=== PATIENT | female | born 1955 | race African-American/Black ===

== ENCOUNTER 2023-08-18 06:48 | Day surgery (SDC) | payer OTHER ==
[2023-08-17 13:45] LABS: Absolute Eosinophils 0.1 K/uL (0-0.5); Absolute Lymphocytes (CBC) 1.7 K/uL (0.7-4.9); Absolute Monocytes 0.4 K/uL (0.1-1.3); Absolute Neutrophil 3.3 K/uL (1.8-8.0); Basophils % 0.5 % (0-1.3); Eosinophils % 1.3 % (0-4.4); Hematocrit 38.2 % (36.0-45.0); Hemoglobin 12.5 g/dL (12.0-15.0); Lymphocytes % 30.3 % (15.3-44.8); MCH 28.9 pg (27.0-35.0); MCHC 32.7 g/dL (32.0-36.0); MCV 88.3 fL (80-100); MPV 7.1 fL (7.6-11.3); Monocytes % 7.6 % (3.3-12.3); Neutrophils % 60.3 % (41.7-73.7); Platelets 359 thou/uL (152-406); RBC Red Blood Cell Count 4.33 M/uL (3.86-4.86); Red Cell Distribution Width 16.7 % (12.1-15.2)
[2023-08-17 13:49] LABS: Anion Gap 8.2 mEq/L (5.0-15.0); Potassium 4.2 mEq/L (3.5-5.1)
[2023-08-18] MEDS ORDERED: Ringers Lactate 1,000 ML IV ONE (07:04)
[2023-08-18] MEDS ORDERED: propofoL 200 MG/20 ML VIAL IV ONE (07:49)
[2023-08-18] MEDS ORDERED: LIDOCAINE 1% MPF 5 ML VIAL ONE (07:49)
[2023-08-18 09:48] VITALS: BP 125/70; TEMP 96.8; O2SAT 100
--- NOTE | 2023-08-21 13:10 | EKG ---
Test Date: 2023-08-17 Test Time: 13:22:59 [employer]: ALICJA MEASUREMENT RESULTS: Intervals: Rate: 72 GA: 154 QRSD: 82 QT: 370 QTc: 405 [place]: P: 63 GA: 154 QRS: 14 T: 39 INTERPRETIVE STATEMENTS: Normal sinus rhythm Cannot rule out Anterior infarct, age undetermined Abnormal ECG No previous ECG available for comparison Electronically Signed On 08-21-23 12:59:29 CDT by Jono Ballesteros
== END 2023-08-18 09:20 | disposition home or self-care (01) ==
LOC: OR 06:48
PROVIDERS: ATTEND Surgery
PROC: 0DBM8ZX Excision of Descending Colon, Via Natural or Artificial Opening Endoscopic, Diagnostic (ICD-10-PCS; principal; 2023-08-18 07:30)
DX: R10.9 Unspecified abdominal pain (principal); R14.0 Abdominal distension (gaseous); R19.8 Other specified symptoms and signs involving the digestive system and abdomen; K57.30 Diverticulosis of large intestine without perforation or abscess without bleeding; K64.8 Other hemorrhoids; K63.5 Polyp of colon
CPT/HCPCS: 93005; 85025; 80048; 36415; 88304; 45380; J2704; J2001; J7120; 88305

== ENCOUNTER 2023-10-07 12:33 | Emergency (ER) | payer OTHER ==
--- OUTSIDE RECORDS SUMMARY | 2023-10-07 12:37 | XMS REPORT | Continuity of Care Document ---
Author Name Unknown Address [address] [facility] [address] [place] [address] [facility] thconnect Address [address] [facility] [address] [place] [address] Care Team Providers Care Aged Or Disabled Carer Name Role Phone UMAIR DIOR Primary Care Physician MARCIAL Carbajal Attending Clinician MARCIAL Fish Attending Clinician Henrietta MESSINA Attending Clinician Unavailable Oral DUMONT, Estee Moore Attending Clinician Unavailab Carmen Howell [facility] Attending Clinician Unavailabl e Doctor Unassigned, [place] Attending Clinician U JACEK Kapadia Attending Clinician Unavailabl demar BARGER Attending Clinician Unavailable Therapy, Pcp Covid Infusion Attending Clinician Unavailable Aldo Zambrano MD Attending Clinician ALDO ZAMBRANO Attending Clinician Unavailable MARCIAL FRENCH Admitting Clinician Henrietta MESSINA Admitting Clinician Unavailable CHARBEL Admitting Clinician Unavailable Payers Payer Name Policy Type Policy Number Effective Date Expirati on Date Source [employer] G[employer]BACK HMO [id number] 2022 00:00:00 [place] (MEDICARE REPLACEMENT/ADVANT AGE - HMO) [id number] 2022 00:00:00 [place] PREMI[place] H[place]/POS [id number] 2022 00:00:00 UMR (PPO) [id number] 2017 00:00:00 Problems Condition Name Condition Details Condition Category Status Onset Date Resolution Date Last Treatment Date Treating Clinician Comments Source Chronic kidney disease stage 2 Chronic Kidney Disease Stage 2 Problem Active 4-21 00:00: 00 [facility] Allergic rhinitis Allergic Rhinitis Problem Active 1-18 00:00: 00 [facility] Multiple joint pain Multiple Joint Pain Problem Active 18 00:00: 00 [facility] Pain in throat Pain in Throat Problem Active 18 00:00: 00 [facility] Long-term drug therapy Long-term Drug Therapy Problem Active 18 00:00: 00 [facility] Hyperchole sterolemia Hyperchole sterolemia Problem Active 2022-04 0-12 00:00: 00 [facility] Serosal tear of rectum Serosal Tear of Rectum Problem Active 2022-04 0-12 00:00: 00 [facility] Seasonal allergic rhinitis Seasonal Allergic Rhinitis Problem Active 8-09 00:00: 00 [facility] Thickened endometriu m Thickened endometriu m Disease Active 6-13 00:00: 00 [facility] Abnormal uterine bleeding Abnormal Uterine Bleeding Problem Active 5-08 00:00: 00 [facility] Pain in left arm Pain in Left Arm Problem Active 5-08 00:00: 00 [facility] Prediabete s Prediabete s Problem Active 4-03 00:00: 00 [facility] History of migraine History of Migraine Problem Active 07-07 00:00: 00 [facility] Body mass index 30+ - obesity Body Mass Index 30+ - Obesity Problem Active 16 00:00: 00 [facility] Malaise and fatigue Malaise and Fatigue Problem Active 07-07 00:00: 00 [place] [facility] Abdominal pain Abdominal Pain Problem Active 07-07 00:00: 00 [place] [facility] Postmenopa usal bleeding Postmenopa usal bleeding Disease Active 07-08 00:00: 00 [facility] Personal history of COVID-19 Personal history of COVID-19 Disease Active 07-08 00:00: 00 [facility] Herpes labialis Herpes labialis Disease Active 07-08 00:00: 00 [facility] Family history of malignant neoplasm of breast in first degree relative Family history of malignant neoplasm of breast in first degree relative Disease Active 06-21 00:00: 00 [facility] Endometria l hyperplasi a Endometria l hyperplasi a Disease Active 06-21 00:00: 00 [facility] Unsatisfac tory cervical Papanicola ou smear Unsatisfac tory cervical Papanicola ou smear Disease Active 10-05 00:00: 00 Overview: Formattin g of this note might be different from the original. Repeat in 6-8 weeks [facility] Encounter for routine gynecologi matilde examinatio n Encounter for routine gynecologi matilde examinatio n Disease Active 09-24 00:00: 00 Overview: Formattin g of this note might be different from the original. 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 ICD10 Diagnosis Term [employer] Utility [facility] Absence of menstruati on Absence of menstruati on Disease Active 09-24 00:00: 00 [facility] Trichomona l vulvovagin itis Trichomona l vulvovagin itis Disease Active 09-24 00:00: 00 [facility] Rectal tear Rectal tear Disease Active [facility] Allergies, Adverse Reactions, Alerts Allergy Name Allergy Type Status Severity Reaction(s) Onset Date Inactive Date Treating Clinician Comments Source TRIMETHO PRIM DRUG INGREDI Active Other-Cmnt 09-24 00:00: 00 [facility] Trimetho prim Propensi ty to adverse reaction s Active Other - See comments 09-24 00:00: 00 spasms [facility] Social History Social Habit Start Date Stop Date Quantity Comments Source Gender identity [facility] Sexual orientation [facility] History of tobacco use Cigarette Smoker [facility] Alcohol intake 2023-03-21 00:00:00 2023-03-21 00:00:00 Current non-drinker of alcohol (finding) [facility] History of Social function 2023-03-06 00:00:00 2023-03-06 00:00:00 [facility] Tobacco use and exposure 2023-02-24 00:00:00 2023-02-24 00:00:00 Smokeless tobacco non-user [facility] Exposure to SARS-CoV-2 (event) 2022-09-10 00:00:00 2022-09-20 16:59:00 Not sure [facility] Sex Assigned At 1955 00:00:00 1955 00:00:00 [facility] Smoking Status Start Date Stop Date Source Ex-smoker 2023-02-24 00:00:00 2023-02-24 00:00:00 [facility] Never smoked tobacco [facility] Medications Ordered Medication Name Filled Medication Name Start Date Stop Date Current Medication? Ordering Clinician Indication Dosage Frequency Signature (SIG) Comments Components Source HYDROcodone -acetaminop hen (NORCO 5) 5-325 mg tablet 1 tablet 2022-04 16:00: 00 03-06 17:02 :00 No 1{tbl} 1 tablet, Oral, ONCE, 1 dose, On Mon03/06/23 at 1000, Routine, PACU [facility] HYDROmorphO ne (DILAUDID) injection 0.2 mg 2022-04 15:57: 20 Yes .2mg 0.2 mg, Slow IV Push, Q5MIN PRN, 10 doses, Starting on Mon03/06/23 at 0957, Until Discontinu ed, Routine, Pain (scale 7-10), PACU
Us e approved by (Faculty): PACU USE -ANESTHESI A SERVICE-HY DROMORPHON E INJECTIONS [facility] FENTanyl PF (SUBLIMAZE (PF)) injection 25 mcg 2022-04 15:57: 20 Yes 25ug 25 mcg, Slow IV Push, Q5MIN PRN, 4 doses, Starting on Mon03/06/23 at 0957, Until Discontinu ed, Routine, Pain (scale 4-6), PACU [facility] ondansetron (ZOFRAN (PF)) injection 4 mg 2022-04 15:57: 20 Yes 4mg 4 mg, Slow IV Push, PRN, 1 dose, Starting on Mon03/06/23 at 0957, Until Discontinu ed, Routine, Nausea and Vomiting (N/V), PACU [facility] sodium chloride 0.9 % irrigation solution 2022-04 14:05: 00 03-06 16:20 :31 No PRN, Starting on Mon03/06/23 at 0805, Until Mon03/06/23 at 1020, Intra-op [facility] vasopressin (VASOSTRICT ) injection 2022-04 14:05: 00 03-06 16:20 :31 No PRN, Starting on Mon03/06/23 at 0805, Until Mon03/06/23 at 1020, Routine, Intra-op [facility] atorvastati n 20 mg tablet 2022-04 12:53: 35 Yes 20mg Take 1 tablet by mouth at bedtime. [facility] metroNIDAZO LE 500 mg tablet 2022-04 00:00: 00 03-14 05:59 :00 No [id number] 500mg Take 1 tablet by mouth in the morning and 1 tablet in the evening. Do all this for 7 days. [facility] HYDROcodone -acetaminop hen 5-325 mg tablet 2022-04 00:00: 00 03-14 05:59 :00 No [id number] 1{tbl} Take 1 tablet by mouth every 6 (six) hours as needed for Pain (scale 4-6) or Pain (scale 7-10) for up to 7 days. Indication s: acute pain [facility] atorvastati n 20 mg tablet 2022-04 14:48: 39 Yes 20mg Take 1 tablet by mouth at bedtime. [facility] gabapentin 300 mg capsule 08-15 00:00: 00 Yes 300mg Take 1 capsule by mouth in the morning and 1 capsule in the evening. [facility] traMADoL 50 mg tablet 08-09 00:00: 00 03-06 00:00 :00 No 50mg Take 1 tablet by mouth every 6 (six) hours. [facility] casirivimab -imdevimab 1200 mg in 60 mL NS MINI-BAG 01-14 20:45: 00 01-14 19:57 :00 No [id number] 1200mg [facility] casirivimab -imdevimab 1200 mg in 60 mL NS MINI-BAG 01-14 20:45: 00 01-14 19:57 :00 No [id number] 1200mg 1,200 mg, IV Infusion, ONCE, Administer over 20 Minutes, On Mon01/14/21 at 1545, For 1 dose
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 &nbs p;
[facility] metroNIDAZO LE (FLAGYL) 500 mg tablet 09-24 00:00: 00 03-06 00:00 :00 No 2 gm po x 1 dose [facility] atorvastati n 20 mg tablet Take 1 tablet every day by oral route. Take with Co Q10 daily with this medication. atorvastati n 20 mg tablet Take 1 tablet every day by oral route. Take with Co Q10 daily with this medication. No 1 Q1D atorvastat in 20 mg tablet Take 1 tablet every day by oral route. Take with Co Q10 daily with this medication . [facility] Immunizations Ordered Immunization Name Filled Immunization Name Date Status Comments Source influenza, unspecified formulation influenza, unspecified formulation Unknown Completed [facility] COVID-19 (SARS-COV-2) vaccine, unspecified COVID-19 (SARS-COV-2) vaccine, unspecified Unknown Completed [facility] Vital Signs Vital Name Observation Time Observation Value Comments S ource BP Systolic 2023-09-14 00:00:00 110 mm[Hg] [facility] BMI (Body Mass Index) 2023-09-14 00:00:00 37.6 kg/m2 [facility] BP Diastolic 2023-09-14 00:00:00 66 mm[Hg] [facility] Body Weight 2023-09-14 00:00:00 3504 [oz_av] [facility] Height 2023-09-14 00:00:00 64 [in_i] [facility] BP Diastolic 2023-08-10 00:00:00 78 mm[Hg] [facility] Height 2023-08-10 00:00:00 64 [in_i] Replaced by [facility] BMI (Body Mass Index) 2023-08-10 00:00:00 3.8 kg/m2 [facility] BP Systolic 2023-08-10 00:00:00 108 mm[Hg] [facility] Body Weight 2023-08-10 00:00:00 352 [oz_av] [facility] BP Systolic 2023-05-11 00:00:00 128 mm[Hg] [facility] BP Diastolic 2023-05-11 00:00:00 84 mm[Hg] [facility] Height 2023-05-11 00:00:00 64 [in_i] [facility] Systolic blood pressure 2023-03-21 19:16:00 129 mm[Hg] [facility] Diastolic blood pressure 2023-03-21 19:16:00 82 mm[Hg] [facility] Heart rate 2023-03-21 19:16:00 105 /min [facility] Body temperature 2023-03-21 19:16:00 36.78 Silvia [facility] Respiratory rate 2023-03-21 19:16:00 16 /min [facility] Body height 2023-03-21 19:16:00 162.6 cm [facility] Body weight 2023-03-21 19:16:00 102.876 kg [facility] BMI 2023-03-21 19:16:00 38.93 kg/m2 [facility] Oxygen saturation in Arterial blood by Pulse oximetry 2023-03-21 19:16:00 95 /min [facility] Heart rate 2023-03-06 17:25:00 68 /min [facility] Oxygen saturation in Arterial blood by Pulse oximetry 2023-03-06 17:25:00 97 /min [facility] Systolic blood pressure 2023-03-06 17:20:00 124 mm[Hg] [facility] Diastolic blood pressure 2023-03-06 17:20:00 58 mm[Hg] [facility] Respiratory rate 2023-03-06 17:20:00 23 /min [facility] Body temperature 2023-03-06 16:03:00 36.39 Silvia [facility] Body height 2023-02-24 14:30:00 162.6 cm [facility] Body weight 2023-02-24 14:30:00 100.245 kg [facility] BMI 2023-02-24 14:30:00 37.93 kg/m2 [facility] Systolic blood pressure 2023-03-06 12:53:00 112 mm[Hg] [facility] Diastolic blood pressure 2023-03-06 12:53:00 62 mm[Hg] [facility] Heart rate 2023-03-06 12:53:00 99 /min [facility] Body temperature 2023-03-06 12:53:00 36.67 Silvia [facility] Respiratory rate 2023-03-06 12:53:00 16 /min [facility] Oxygen saturation in Arterial blood by Pulse oximetry 2023-03-06 12:53:00 100 /min [facility] Body height 2023-02-24 14:30:00 162.6 cm [facility] Body weight 2023-02-24 14:30:00 100.245 kg [facility] BMI 2023-02-24 14:30:00 37.93 kg/m2 [facility] Systolic blood pressure 2023-03-02 20:47:00 104 mm[Hg] [facility] Diastolic blood pressure 2023-03-02 20:47:00 64 mm[Hg] [facility] Heart rate 2023-03-02 20:47:00 92 /[facility] 2023-03-02 20:47:00 18 /min [facility] Body height 2023-03-02 20:47:00 162.6 cm [facility] Body weight 2023-03-02 20:47:00 103.874 kg [facility] BMI 2023-03-02 20:47:00 39.31 kg/m2 [facility] BP Systolic 2023-02-02 00:00:00 122 mm[Hg] [facility] BP Diastolic 2023-02-02 00:00:00 70 mm[Hg] [facility] BMI (Body Mass Index) 2023-02-02 00:00:00 39.3 kg/m2 [facility] Body Weight 2023-02-02 00:00:00 3664 [oz_av] [facility] Height 2023-02-02 00:00:00 64 [in_i] [facility] Systolic blood pressure 2023-01-05 20:29:00 117 mm[Hg] [facility] Diastolic blood pressure 2023-01-05 20:29:00 73 mm[Hg] [facility] Heart rate 2023-01-05 20:29:00 98 /min [facility] Body temperature 2023-01-05 20:29:00 36.67 Silvia [facility] Respiratory rate 2023-01-05 20:29:00 16 /min [facility] Body height 2023-01-05 20:29:00 162.6 cm [facility] Body weight 2023-01-05 20:29:00 101.061 kg [facility] BMI 2023-01-05 20:29:00 38.24 kg/m2 [facility] Oxygen saturation in Arterial blood by Pulse oximetry 2023-01-05 20:29:00 98 /min [facility] Height 2022-12-05 00:00:00 64 [in_i] Replaced by [facility] BP Systolic 2022-12-05 00:00:00 122 mm[Hg] [facility] Body Weight 2022-12-05 00:00:00 3376 [oz_av] [facility] BP Diastolic 2022-12-05 00:00:00 68 mm[Hg] [facility] BMI (Body Mass Index) 2022-12-05 00:00:00 36.2 kg/m2 [facility] Body Weight 2022-11-30 00:00:00 3376 [oz_av] [facility] BP Systolic 2022-11-30 00:00:00 120 mm[Hg] [facility] BMI (Body Mass Index) 2022-11-30 00:00:00 36.2 kg/m2 [facility] BP Diastolic 2022-11-30 00:00:00 74 mm[Hg] [facility] Height 2022-11-30 00:00:00 64 [in_i] Replaced by [facility] Systolic blood pressure 2022-11-10 20:07:00 109 mm[Hg] [facility] Diastolic blood pressure 2022-11-10 20:07:00 74 mm[Hg] [facility] Heart rate 2022-11-10 20:07:00 82 /min [facility] Body temperature 2022-11-10 20:07:00 36.61 Silvia [facility] Respiratory rate 2022-11-10 20:07:00 18 /min [facility] Body height 2022-11-10 20:07:00 162.6 cm [facility] Body weight 2022-11-10 20:07:00 100.426 kg [facility] BMI 2022-11-10 20:07:00 38.00 kg/m2 [facility] Systolic blood pressure 2022-10-04 19:18:00 128 mm[Hg] [facility] Diastolic blood pressure 2022-10-04 19:18:00 72 mm[Hg] [facility] Heart rate 2022-10-04 19:18:00 88 /min [facility] Body temperature 2022-10-04 19:18:00 36.5 Silvia [facility] Body height 2022-10-04 19:18:00 162.6 cm [facility] Body weight 2022-10-04 19:18:00 98.068 kg [facility] BMI 2022-10-04 19:18:00 37.11 kg/m2 [facility] BP Diastolic 2022-09-22 00:00:00 68 mm[Hg] [facility] Height 2022-09-22 00:00:00 64 [in_i] Replaced by [facility] BMI (Body Mass Index) 2022-09-22 00:00:00 37.2 kg/m2 [facility] BP Systolic 2022-09-22 00:00:00 118 mm[Hg] [facility] Body Weight 2022-09-22 00:00:00 3472 [oz_av] [facility] Systolic blood pressure 2022-09-16 20:15:00 100 mm[Hg] [facility] Diastolic blood pressure 2022-09-16 20:15:00 67 mm[Hg] [facility] Heart rate 2022-09-16 20:15:00 80 /min [facility] Respiratory rate 2022-09-16 20:15:00 18 /min [facility] Body height 2022-09-16 20:15:00 162.6 cm [facility] Body weight 2022-09-16 20:15:00 98.884 kg [facility] BMI 2022-09-16 20:15:00 37.42 kg/m2 [facility] BP Diastolic 2022-08-29 00:00:00 84 mm[Hg] [facility] Height 2022-08-29 00:00:00 64 [in_i] Replaced by [facility] BMI (Body Mass Index) 2022-08-29 00:00:00 37.4 kg/m2 [facility] BP Systolic 2022-08-29 00:00:00 118 mm[Hg] [facility] Body Weight 2022-08-29 00:00:00 3488 [oz_av] [facility] BP Diastolic 2022-08-15 00:00:00 86 mm[Hg] [facility] Height 2022-08-15 00:00:00 64 [in_i] Replaced by [facility] BP Systolic 2022-08-15 00:00:00 118 mm[Hg] [facility] BP Diastolic 2022-08-12 00:00:00 78 mm[Hg] [facility] Height 2022-08-12 00:00:00 64 [in_i] Replaced by [facility] BMI (Body Mass Index) 2022-08-12 00:00:00 37.8 kg/m2 [facility] BP Systolic 2022-08-12 00:00:00 114 mm[Hg] [facility] Body Weight 2022-08-12 00:00:00 3520 [oz_av] [facility] BP Diastolic 2022-08-09 00:00:00 86 mm[Hg] [facility] Height 2022-08-09 00:00:00 64 [in_i] Replaced by [facility] BP Systolic 2022-08-09 00:00:00 138 mm[Hg] [facility] BP Diastolic 2022-07-28 00:00:00 72 mm[Hg] [facility] Height 2022-07-28 00:00:00 64 [in_i] Replaced by [facility] BMI (Body Mass Index) 2022-07-28 00:00:00 37.9 kg/m2 [facility] BP Systolic 2022-07-28 00:00:00 118 mm[Hg] [facility] Body Weight 2022-07-28 00:00:00 3536 [oz_av] [facility] BP Diastolic 2022-07-07 00:00:00 74 mm[Hg] [facility] Height 2022-07-07 00:00:00 64 [in_i] Replaced by [facility] BMI (Body Mass Index) 2022-07-07 00:00:00 37.6 kg/m2 [facility] BP Systolic 2022-07-07 00:00:00 128 mm[Hg] [facility] Body Weight 2022-07-07 00:00:00 3504 [oz_av] [facility] Systolic blood pressure 2021-01-14 20:53:00 106 mm[Hg] [facility] Diastolic blood pressure 2021-01-14 20:53:00 68 mm[Hg] [facility] Heart rate 2021-01-14 20:53:00 101 /min [facility] Body temperature 2021-01-14 20:53:00 36.22 Silvia [facility] Respiratory rate 2021-01-14 20:53:00 20 /min [facility] Oxygen saturation in Arterial blood by Pulse oximetry 2021-01-14 20:53:00 95 /min room air [facility] Body height 2021-01-14 19:30:00 162.6 cm [facility] Body weight 2021-01-14 19:30:00 107.049 kg [facility] BMI 2021-01-14 19:30:00 40.51 kg/m2 [facility] Procedures Procedure Date / Time Performed Performing Clinician Source DEXA, axial skeleton + vertebral fracture assessment 2023-08-10 00:00:00 [facility] MAMMO, screening, bilateral 2023-08-10 00:00:00 [facility] US, neck, soft tissue 2023-05-11 00:00:00 [facility] Hysterectomy 2023-05-11 00:00:00 [facility] HB ECG ROUTINE & RHYTHM STRIP 2023-03-06 17:41:25 America Cobb [facility] VAGINAL HYSTERECTOMY 2023-03-06 13:12:00 Duyen Alexandre Marcial [facility] CYSTOSCOPY 2023-03-06 13:12:[address] [facility] CBC WITH DIFF 2023-03-04 16:44:[address] [facility] DSU PRE-OP 2023-03-02 06:01:00 Doctor Unass igned, [place] [facility] INSURANCE CORRESPONDENCE 2023-02-21 05:01:00 Doc tor Unassigned, [place] [facility] US PELVIS COMPLETE WITH TRANSVAGINAL 2022-09-27 21:00:29 Gillian Marcial [facility] ASSIGNMENT OF BENEFITS 2022-09-16 19:36:55 Docto r Unassigned, [place] [facility] REFERRAL- REQUEST/RESPONSE 2022-08-29 05:01:00 D octor Unassigned, [place] [facility] XR, scapula 2022-08-12 00:00:00 [facility] XR, thoracic spine, 2 view 2022-08-12 00:00:00 [facility] XR, chest, 2 view 2022-08-12 00:00:00 [facility] electrocardiogram 2022-08-09 00:00:00 [facility] XR, abdomen 2022-07-07 00:00:00 [facility] [id number] CONSENT 2021-01-14 05:01:00 Doctor Johnny signed, [place] [facility] Ligation of Fallopian Tube S [facility] Encounters Start Date/Time End Date/Time Encounter Type Admission Type Attending [facility] Care Facility Care Department Encounter ID Source 2022-11-17 16:22:06 Outpatient [facility] [id number] [facility] 2023-09-14 00:00:00 2023-09-14 00:00:00 WANDER Armenta: Ruby Scott, [place] [address] , Ph. [phone] [facility], [facility], [place] [address] [address] [place] [facility] [facility] 2023-08-10 00:00:00 2023-08-10 00:00:00 WANDER Armenta: [place] [address] , Ph. [facility], KILLIAN [address] 0418 [facility] 2023-08-01 00:00:00 2023-08-01 00:00:00 Outpatient ERICKSON_R [facility] [id number] [facility] 2023-05-11 00:00:00 2023-05-11 00:00:00 Outpatient ERICKSON_R [facility] [id number] [facility] 2023-05-11 00:00:00 2023-05-11 00:00:00 WANDER Armenta: [address], [place] [address] , Ph. [facility], DR. DIOR [id number] [facility] 2023-04-25 11:00:00 2023-04-25 11:00:00 Outpatient R VELA-ISABELA S, MARCIAL VELA-ISABELA S, MARCIAL [facility] [id number] [facility] 2023-03-21 13:15:00 2023-03-21 13:38:39 Outpatient R VELA-ISABELA S, MARCIAL VELA-ISABELA S, MARCIAL [facility] [id number] [facility] 2023-03-21 13:15:00 2023-03-21 13:38:39 Office Visit Vela-Isabela s, Marcial [facility] 1.2.840.114 350.1.13.10 4.2.7.2.686 [id number] [facility] 2023-03-17 00:00:00 2023-03-17 00:00:00 Nurse Triage Estee Mixon [facility] 1.2.840.114 350.1.13.10 4.2.7.2.686 [id number] [facility] 2023-03-06 06:27:00 2023-03-06 11:50:00 Outpatient R VELA-ISABELA S, MARCIAL VELA[facility]ISABEL[facility] S, [facility]CIAL [facility] COLLEGE [id number] [facility] 2023-03-06 06:27:00 2023-03-06 11:50:00 [facility] 1.2.840.114 350.1.13.10 4.2.7.2.686 [id number] [facility] 2023-03-06 07:15:00 2023-03-06 10:00:00 [facility] 1.2.840.114 350.1.13.10 4.2.7.2.686 [id number] [facility] 2023-03-04 10:45:00 2023-03-04 11:00:00 Departmental Buyer Visit Pob, Adc Lab Main lOe trejo Marcial [facility] 1.20.114 350.1.13.10 4.2.7.2.686 [id number] [facility] 2023-03-04 10:45:00 2023-03-04 10:45:00 Outpatient R ALONZO-ISABELA S, MARCIAL VELA-ISABELA S, MARCIAL [facility] [id number] [facility] 2023-03-02 14:30:00 2023-03-02 15:13:05 Outpatient R ALONZO-ISABELA S, MARCIAL VELA-ISABELA S, [facility] [id number] [facility] 2023-03-02 14:30:00 2023-03-02 15:13:05 Office Visit Ole trejo [facility] 1.0.114 350.1.13.10 4.2.7.2.686 [id number] [facility] 2023-03-02 00:00:00 2023-03-02 00:00:00 Orders Only Doctor Unassigned, [place] [facility] 1.2840.114 350.1.13.10 4.2.7.2.686 [id number] [facility] 2023-03-02 00:00:00 2023-03-02 00:00:00 Telephone Ole trejo [facility] 1.20.114 350.1.13.10 4.2.7.2.686 [id number] [facility] 2023-02-21 00:00:00 2023-02-21 00:00:00 Orders Only Doctor Unassigned, [place] [facility] 1.2840.114 350.1.13.10 4.2.7.2.686 [id number] [facility] 2023-02-02 00:00:00 2023-02-02 00:00:00 Umair Doir, DO: [address], [address], [place] [address] , [address] [facility] - [facility], DR. DIOR [id number] [facility] 2023-01-30 00:00:00 2023-01-30 00:00:00 Outpatient ERICKSON_R [facility] [id number] [facility] 2023-01-30 00:00:00 2023-01-30 00:00:00 Outpatient ERANUJ_R [facility] [id number] [facility] 2023-01-05 15:30:00 2023-01-05 16:00:00 Office Visit Vela-Isabela s Marcial [facility] 1.2.840.114 350.1.13.10 4.2.7.2.686 [id number] [facility] 2023-01-05 15:30:00 2023-01-05 15:30:00 Outpatient R VELA-ISABELA S, MARCIAL VELA-ISABELA S, MARCIAL [facility] [id number] [facility] 2022-12-20 00:00:00 2022-12-20 00:00:00 Telephone Vela-Isabela s, Marcial [facility] 1..840.114 350.1.13.10 4.2.7.2.686 [id number] [facility] 2022-12-15 14:00:00 2022-12-15 14:00:00 Outpatient R VELA-ISABELA S, MARCIAL VELA-ISABELA S, MARCIAL [facility] [id number] [facility] 2022-12-05 00:00:00 2022-12-05 00:00:00 Umair Dior, DO: [address], [place] [address] , Ph. [facility], DR. DIOR [id number] [facility] 2022-11-30 00:00:00 2022-11-30 00:00:00 KILLIAN [place]-C: [address], [place] [address] , Ph. [facility], DR. DIOR [id number] [facility] 2022-11-10 14:45:00 2022-11-10 15:23:16 Outpatient R MARCIAL MORALES [facility] [id number] [facility] 2022-11-10 14:45:00 2022-11-10 15:23:16 Office Visit Marcial Morales [facility] 1.2.840.114 350.1.13.10 4.2.7.2.686 [id number] [facility] 2022-10-28 00:00:00 2022-10-28 00:00:00 Telephone Marcial Morales [facility] 1.2.840.114 350.1.13.10 4.2.7.2.686 [id number] [facility] 2022-10-24 14:00:00 2022-10-24 14:00:00 Outpatient JACEK WYLIE [facility] [id number] [facility] 2022-10-06 00:00:00 2022-10-06 00:00:00 Outpatient ERICKSON_R [facility] [id number] [facility] 2022-10-06 00:00:00 2022-10-06 00:00:00 Outpatient ERJUSTINON_R [facility] [id number] [facility] 2022-10-04 13:15:00 2022-10-04 14:29:24 Outpatient R VELA-ISABELA S, MARCIAL VELA-ISABELA S, MARCIAL [facility] [id number] [facility] 2022-10-04 13:15:00 2022-10-04 13:45:00 Office Visit Vela-Isabela s, Marcial [facility] 1.2.840.114 350.1.13.10 4.2.7.2.686 [id number] [facility] 2022-09-27 15:13:31 2022-09-27 23:59:00 Outpatient R VELA-ISABELA S, MARCIAL VELA-ISABELA S, MARCIAL [facility] [id number] [facility] 2022-09-27 15:00:00 2022-09-27 23:59:00 Hospital Encounter Vela-Isabela s, Marcial [facility] 1.2.840.114 350.1.13.10 4.2.7.2.686 [id number] [facility] 2022-09-22 00:00:00 2022-09-22 00:00:00 Umair Dior, DO: [address] , [place] [address] , Ph. [phone] [facility], DR. DIOR [id number] [facility] 2022-09-16 15:00:00 2022-09-16 15:44:23 Outpatient R EVLA-ISABELA S, MARCIAL VELA-ISABELA S, MARCIAL [facility] [id number] [facility] 2022-09-16 15:00:00 2022-09-16 15:44:23 Office Visit Marcial Morales [facility] 1.2.840.114 350.1.13.10 4.2.7.2.686 [id number] [facility] 2022-09-16 00:00:00 2022-09-16 00:00:00 Orders Only Doctor Unassigned, [place] [facility] 1.2.840.114 350.1.13.10 4.2.7.2.686 [id number] [facility] 2022-08-29 00:00:00 2022-08-29 00:00:00 Umair Dior, DO: [address], [place] [address] , Ph. [facility], DR. DIOR [id number] [facility] 2022-08-29 00:00:00 2022-08-29 00:00:00 Orders Only Doctor Unassigned, [place] [facility] 1.2.840.114 350.1.13.10 4.2.7.2.686 [id number] [facility] 2022-08-15 00:00:00 2022-08-15 00:00:00 Umair Dior, DO: [address], [place] [address] , Ph. [facility], DR. DIOR [id number] [facility] 2022-08-12 00:00:00 2022-08-12 00:00:00 Umair Dior, DO: [place] [address] , Ph. [phone] [facility], DR. DIOR [id number] [facility] 2022-08-09 00:00:00 2022-08-09 00:00:00 Umair Dior, DO: [address], [place] [address] , Ph. [facility], DR. DIOR [id number] [facility] 2022-07-28 00:00:00 2022-07-28 00:00:00 Outpatient ERICKSON_R [facility] [id number] [facility] 2022-07-28 00:00:00 2022-07-28 00:00:00 Outpatient ERICKSON_R [facility] [id number] [facility] 2022-07-28 00:00:00 2022-07-28 00:00:00 Outpatient ERICKSON_R [facility] [id number] [facility] 2022-07-28 00:00:00 2022-07-28 00:00:00 Outpatient ERICKSON_R [facility] [id number] [facility] 2022-07-28 00:00:00 2022-07-28 00:00:00 Outpatient ERICKSON_R [facility] [id number] [facility] 2022-07-28 00:00:00 2022-07-28 00:00:00 Outpatient ERICKSON_R [facility] [id number] [facility] 2022-07-28 00:00:00 2022-07-28 00:00:00 Umair Dior, DO: [address], [place] [address] , Ph. [facility], DR. DIOR [id number] [facility] 2022-07-07 00:00:00 2022-07-07 00:00:00 Outpatient ERICKSON_R [facility] [id number] [facility] 2022-07-07 00:00:00 2022-07-07 00:00:00 Outpatient ERICKSON_R [facility] [id number] [facility] 2022-07-07 00:00:00 2022-07-07 00:00:00 Umair Dior, DO: [address] , [place] [address] , Ph. [phone] [facility], DR. DIOR [id number] [facility] 2022-06-28 00:00:00 2022-06-28 00:00:00 Outpatient ERJUSTINON_R [facility] [id number] [facility] 2021-03-17 03:58:00 2021-03-17 03:58:00 Outpatient INGRID_SOHAN RIDLEY [facility] [id number] [facility] 2021-01-14 13:58:06 2021-01-14 14:58:06 Nurse Visit Therapy, Pcp Aldo Aldana [facility] 1.2.840.114 350.1.13.10 4.2.7.2.686 [id number] [facility] 2021-01-14 14:00:00 2021-01-14 14:00:00 Outpatient ALDO FOSS [facility] [id number] [facility] 2021-01-14 00:00:00 2021-01-14 00:00:00 Orders Only Doctor Unassigned, [place] [facility] 1.2.840.114 350.1.13.10 4.2.7.2.686 [id number] [facility] Results Test Description Test Time Test Comments Results Result Co mments Source [facility] (COVID-19) Ag [Presence] in Respiratory system specimen by Rapid [id number] 14:51:00* Test Item Value Reference Range Interpretation Comme nts SARS CoV 2 (test code = SARS CoV 2) negative [facility] Notes Date/Time Note Provider Source 2022-12-20 15:19:11 [id number]:19:11F ormatting of this note might be different from the original.Returned pt's call regarding Hysteroscopy D&C. Pt inquired when Dr. French' availability is for January for sx. Pt stated Bleeding has returned. Advised pt that per Dr. French' last note she needs a preop appt prior to sx. Advised pt to make appt for preop and also to let her know bleeding has resurfaced. Pt verbalized understanding and was then transferred to PSS to have appt scheduled. 26257-8Byyyauwsi encounter [id number]:22:08Telepho ne encounter NoteTXT1.2.840.954263.1.13.104.2 .7.2.770776|[id number] e for patient [id number] y E Burch [address] EmvfFqlabjseyVpsjzjvbyKWTU794770 6763HARWYZVSOKOMBPFWRSHWUT3219-1 8-29T15:22:081.2.840.093647.1.72 .3.15|1.2.840.888365.1.13.104.2. [id number] Nneka Saenz MA [facility] 2022-12-20 14:46:03 2057-15-50B90:46:03F ormatting of this note might be different from the original.Patient is wanting to reschedule the HYSTEROSCOPY WITH DILATATION AND CURETTAGE that was scheduled but got canceled. Please call to let her know what she needs to do. 89415-2Cpeznruxp encounter FhonNP6950-26-29I81:47:32Telepho ne encounter NoteTXT1.2.840.309918.1.13.104.2 .7.2.271803|[id number] demar for patient [id number] K [address] Yj[id number] 4751YWOQIZWNSXFAGKZGJEFOKD9024-8 :47:321.2.840.043960.1.72 .3.15|1.2.840.276247.1.13.104.2. [id number] Madhuri Serrano [facility]"
[2023-10-07 14:17] LABS: SARS-CoV-2 Antigen CONTROL BLUE LINE VIS/BG OK; SARS-CoV-2 Antigen Rapid Res Negative (Negative)
--- NOTE | 2023-10-07 14:41 | EDPHYS ---
Physician Documentation [facility] Name: Ashleigh Ren Age: 68 yrs Sex: Female : 1955 Arrival Date: 10/07/2023 Time: 12:33 Bed IW1 Private MD: ED Physician John Ramírez HPI: 10/06 14:39 This 68 yrs old Black Female presents to ER via Ambulatory with complaints of Body ec2 Aches. 14:39 Patient arrives today for evaluation of bodyaches as well as nausea, headache, fatigue. ec2 Reports sick contacts at home and thinks she caught a viral infection. No significant abdominal pain, no urinary complaints. . Historical: - Allergies: 13:37 No Known Allergies; ph - Immunization history:: Adult Immunizations unknown. - Infectious Disease History:: Denies. - Social history:: Smoking status: Patient denies any tobacco usage or history of. ROS: 14:39 Constitutional: as per hpi ec2 Exam: 14:39 Constitutional: GEN: NAD Head: atraumatic Eyes: EOMI Ears: External ears are normal. ec2 Mouth: No posterior pharyngeal erythema, no exudates. No anterior cervical lymphadenopathy. CV: regular rate LUNGS: no respiratory distress ABD: non-distended, soft, nontender, no guarding, not rigid. SKIN: no evidence of rashes MSK: no evidence of trauma NEURO: moves all extremities equally Vital Signs: 13:36 BP 121 / 74; Pulse 98; Resp 18; Temp 98.7(O); Pulse Ox 96% on R/A; Weight 100.24 kg; ph Height 5 ft. 4 in. ; 13:36 Body Mass Index 37.93 (100.24 kg, 162.56 cm) ph MDM: 13:49 Patient medically screened. ec2 14:39 Data reviewed: vital signs. ED course: Patient arrives today for evaluation of myalgias ec2 as well as nausea. Examination is remarkable for well-appearing nontoxic individual is otherwise in no acute distress with a reassuring examination. Strep swab, flu swab and COVID swab negative. Suspect other viral infection. Will prescribe the patient medications for symptoms and discharged home. Return precautions given. Additionally considered other processes such as appendicitis, meningitis, urinary tract infection.. 10/06 13:38 Order name: Flu; Complete Time: 14:25 ph 10/06 13:38 Order name: SARS RAPID; Complete Time: 14:25 ph 10/06 13:38 Order name: Strep 10/06 14:16 Order name: Throat Culture EDMS Administered Medications: 14:41 CANCELLED (Physician Discretion): [id number] mg IM once ec2 14:51 Drug: Ondansetron Oral Disintegrating Tablet Oral Disintegrating Tablet 4 mg PO once ph Route: PO; 14:52 Follow up: Response: No adverse reaction ph 14:51 Drug: Dicyclomine PO 20 mg PO once Route: PO; ph 14:52 Follow up: Response: Medication administered at discharge. ph Disposition Summary: 10/07/23 14:41 Discharge Ordered Notes: Location: Home ec2 Condition: Stable ec2 Diagnosis - Viral infection, unspecified ec2 Followup: ec2 - With: Private Physician - When: - Reason: Re-evaluation by your physician Discharge Instructions: - Discharge Summary Sheet ec2 - Viral Illness, Adult ec2 Forms: - Medication Reconciliation Form ec2 - Antibiotic Education ec2 - Prescription Opioid Use ec2 - Patient Portal Instructions ec2 - Leadership Thank You Letter ec2 Prescriptions: - Zofran 4 mg Oral Tablet - take 1 tablet ORAL route every 12 hours As needed; 20 tablet; Refills: 0, ec2 Product Selection Permitted Signatures: Dispatcher [employer] Zoë Callejas RN RN [facility] MD ec2 Corrections: (The following items were deleted from the chart) 14:41 14:40 Dicyclomine IM 20 mg IM once ordered. ec2 ec2 14:42 14:39 ED course: Patient arrives today for evaluation of myalgias as well as nausea. ec2 Examination is remarkable for well-appearing nontoxic individual is otherwise in no acute distress with a reassuring examination. Strep swab, flu swab and COVID swab negative. Suspect other viral infection. Will prescribe the patient medications for symptoms and discharged home. Return precautions given.. ec2
--- NOTE | 2023-10-07 14:41 | ER ---
Nurse's Notes [facility] Name: Ashleigh Ren Age: 68 yrs Sex: Female : 1955 Arrival Date: 10/07/2023 Time: 12:33 Bed IW1 Private MD: Diagnosis: Viral infection, unspecified Presentation: 10/06 13:36 Chief complaint: Patient states: Body aches, nausea, headache, and fever 100.7, denies ph V/D. Coronavirus screen: Vaccine status: Patient reports receiving the 2nd dose of the covid vaccine. Ebola Screen: No symptoms or risks identified at this time. Initial Sepsis Screen: Does the patient meet any 2 criteria? No. Patient's initial sepsis screen is negative. Does the patient have a suspected source of infection? No. Patient's initial sepsis screen is negative. Risk Assessment: Do you want to hurt yourself or someone else? Patient reports no desire to harm self or others. Onset of symptoms was October 07, 2023. 13:36 Method Of Arrival: Ambulatory ph 13:36 Acuity: NATALY 3 ph Triage Assessment: 14:00 General: Appears in no apparent distress. Behavior is calm, cooperative, Reports chills ph for fever for 12-24 hours. Pain: Complains of pain in "body aches". Neuro: Level of Consciousness is awake, alert, obeys commands, Oriented to person, place, time, situation. Cardiovascular: Capillary refill < 3 seconds in bilateral fingers Patient's skin is warm and dry. Respiratory: Airway is patent Respiratory effort is even, unlabored, Respiratory pattern is regular, symmetrical, Denies cough, shortness of breath. GI: Reports diarrhea, nausea, Patient currently denies vomiting. : No signs and/or symptoms were reported regarding the genitourinary system. Derm: Skin is pink, warm \\T\\ dry. Historical: - Allergies: 13:37 No Known Allergies; ph - Immunization history:: Adult Immunizations unknown. - Infectious Disease History:: Denies. - Social history:: Smoking status: Patient denies any tobacco usage or history of. Screenin:50 [facility] ED Fall Risk Assessment (Adult) History of falling in the last 3 months, ph including since admission No falls in past 3 months (0 pts) Confusion or Disorientation No (0 pts) Intoxicated or Sedated No (0 pts) Impaired Gait No (0 pts) Mobility Assist Device Used No (0 pt) Altered Elimination No (0 pt) Score/Fall Risk Level 0 - 2 = Low Risk Oriented to surroundings, Maintained a safe environment, Hourly rounding (assess needs \\T\\ fall precautionary measures) done. Abuse screen: Denies threats or abuse. Denies injuries from another. Nutritional screening: No deficits noted. Tuberculosis screening: No symptoms or risk factors identified. Vital Signs: 13:36 BP 121 / 74; Pulse 98; Resp 18; Temp 98.7(O); Pulse Ox 96% on R/A; Weight 100.24 kg; ph Height 5 ft. 4 in. ; 13:36 Body Mass Index 37.93 (100.24 kg, 162.56 cm) ph ED Course: 12:35 Patient arrived in ED. rg4 12:43 John Ramírez MD is Attending Physician. ec2 13:37 Triage completed. ph 13:38 Patient has correct armband on for positive identification. ph 13:40 Arm band placed on right wrist. ph 14:00 No provider procedures requiring assistance completed. Patient did not have IV access ph during this emergency room visit. 14:44 Zoë Hunt RN is Primary Nurse. ph Administered Medications: 14:41 CANCELLED (Physician Discretion): [id number] mg IM once ec2 14:51 Drug: Ondansetron Oral Disintegrating Tablet Oral Disintegrating Tablet 4 mg PO once ph Route: PO; 14:52 Follow up: Response: No adverse reaction ph 14:51 Drug: Dicyclomine PO 20 mg PO once Route: PO; ph 14:52 Follow up: Response: Medication administered at discharge. ph Outcome: 14:41 Discharge ordered by . ec2 14:51 Patient left the ED. ph 14:51 Discharged to home ambulatory, ph 14:51 Condition: good 14:51 Discharge instructions given to patient, Instructed on discharge instructions, follow up and referral plans. medication usage, Demonstrated understanding of instructions, follow-up care, medications, Prescriptions given X 1, Signatures: Zoë Hunt RN RN ph Yoana Oconnor rg4 John Ramírez MD MD ec2 Corrections: (The following items were deleted from the chart) 16:51 13:38 Arm band placed on Patient placed in an exam room, ph ph
[2023-10-07] MEDS ORDERED: DICYCLOMINE HCL 10 MG CAP ONE (14:44)
[2023-10-07] MEDS ORDERED: ONDANSETRON 4 MG (ODT) TAB ONE (14:45)
[2023-10-07 15:07] VITALS: BP 121/74; TEMP 98.7; O2SAT 96
== END 2023-10-07 14:51 | disposition home or self-care (01) ==
LOC: ER 12:33
DX: B34.9 Viral infection, unspecified (principal); Z11.52 Encounter for screening for COVID-19
CPT/HCPCS: 87070; 36415; 87081; 87804 ×2; 99283; 87811; Q0162